=== PATIENT | female | born 1995 | race Caucasian/White ===

== ENCOUNTER 2023-09-21 11:29 | Emergency (ER) | payer OTHER, BC, MEDICAID, SELFPAY ==
[2023-09-21 11:30] VITALS: BP 139/82; PULSE 83; RESP 15; TEMP 37; O2SAT 96; BMI 36.8
--- NOTE | 2023-09-21 11:35 | CT_ITS ---
WS: [id number] CT CHEST TECHNIQUE: Noncontrast CT of the chest with coronal and sagittal reformatted images. CLINICAL INFORMATION: Traumatic chest pain COMPARISON: None. DLP: 1608.[address] scans at [facility] use at least one of these dose optimization techniques: automated e xposure control; mA and/or kV adjustment per patient size (includes targeted exams where dose is matc hed to clinical indication); or iterative reconstruction. FINDINGS: Shallow inspiration. Slight hazy groundglass attenuation in the lung bases. No focal pneumonia or ple ural fluid. No visualized acute rib fractures. Normal sternum. Mild diffuse fatty filtration of the liver. Adrenal glands are normal. Normal GE junction. CT/CT chest wo con [id number] IMPRESSION: 1. Shallow inspiration with slightly hazy groundglass attenuation in the lung bases. 2. No pleural fluid. 3. No other acute findings.
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
[2023-09-21] MEDS: ketorolac 30 mg/mL INJ IVP (12:43)
[2023-09-21] MEDS: tetanus-diphtheria tox (adult) 0.5 mL SDV IM (12:45)
[2023-09-21] MEDS: HYDROcodone-acetaminophen 10-325 mg Tablet 1 TAB PO (12:49)
[2023-09-21 12:53] VITALS: BP 125/89; PULSE 87; RESP 15
== END 2023-09-21 12:55 | disposition home or self-care (01) ==
PROVIDERS: Emergency Provider Emergency Medicine
DX: S20.412A Abrasion of left back wall of thorax, initial encounter (principal); S20.411A Abrasion of right back wall of thorax, initial encounter; S40.812A Abrasion of left upper arm, initial encounter; S40.811A Abrasion of right upper arm, initial encounter; S80.212A Abrasion, left knee, initial encounter; S80.211A Abrasion, right knee, initial encounter; S20.211A Contusion of right front wall of thorax, initial encounter; V09.9XXA Pedestrian injured in unspecified transport accident, initial encounter; Z23 Encounter for immunization
CPT/HCPCS: 71250; 72128; 90471; 90714; 96374; 99285; J1885